=== PATIENT | female | born 1975 | race Hispanic/Latino ===

== ENCOUNTER → 2017-04-02 | Outpatient (CLI) | payer MEDICAID | END | disposition home or self-care (01) | LOC: OIH 11:40 | PROVIDERS: ATTEND Internal Medicine Gastroenterology | DX: K59.00 Constipation, unspecified (principal) | CPT/HCPCS: 74018 ==

== ENCOUNTER 2018-08-14 07:39 | Day surgery (SDC) | payer OTHER, MEDICAID ==
[~2018-08-14] VITALS: Ht 165.1 cm; Wt 77.1 kg
[~2018-08-14 07:39] MED LIST: LUBI8CAP PO; MAGNESIUM CITRATE; SODIUM CHLORIDE 0.9% 1000ML 1,000 ML IV ONE
[2018-08-14 08:30] VITALS: BP 111/62
[2018-08-14] MEDS ORDERED: PROPOFOL 10 MG/ML 20ML VIAL IV ONE (09:37)
[2018-08-14 09:49] VITALS: BP 95/50
[2018-08-14 09:54] VITALS: BP 108/60
[2018-08-14 09:59] VITALS: BP 111/68
[2018-08-14 10:04] VITALS: BP 112/70
[2018-08-14 10:09] VITALS: BP 110/71
== END 2018-08-14 10:25 | disposition home or self-care (01) ==
LOC: ENDO 07:39 → DAH 07:39 → ENDO 10:25
PROVIDERS: ATTEND Internal Medicine Gastroenterology
DX: K29.50 Unspecified chronic gastritis without bleeding (principal); B96.81 Helicobacter pylori [H. pylori] as the cause of diseases classified elsewhere; K21.9 Gastro-esophageal reflux disease without esophagitis; K59.04 Chronic idiopathic constipation; F32.9 Major depressive disorder, single episode, unspecified; Z87.19 Personal history of other diseases of the digestive system; Z79.899 Other long term (current) drug therapy; Z90.49 Acquired absence of other specified parts of digestive tract; Z98.51 Tubal ligation status
CPT/HCPCS: 43239; 88305; A4606; J2704; J7030

== ENCOUNTER → 2022-06-30 | Outpatient (CLI) | payer OTHER, MEDICARE ==
[~2022-06-30] MED LIST changes: -SODIUM CHLORIDE 0.9% 1000ML 1,000 ML IV ONE
== END | disposition home or self-care (01) ==
LOC: RAH 08:33
PROVIDERS: ATTEND Internal Medicine Gastroenterology
DX: R10.84 Generalized abdominal pain (principal)
CPT/HCPCS: 76700